=== PATIENT | female | born 1945 | race Caucasian/White ===

== ENCOUNTER → 2016-04-10 | Outpatient (REF) | payer MEDICARE | LOC: M SFHCCLAY 07:24 | PROVIDERS: ATTEND Nurse Practitioner Family | DX: E78.4 Other hyperlipidemia (principal); E55.9 Vitamin D deficiency, unspecified ==

== ENCOUNTER → 2016-10-16 | Outpatient (REF) | payer MEDICARE ==
[~2016-10-16] MED LIST: AMLO5TAB2 PO
[2016-10-16 12:09] LABS: MEAN CORPUSCULAR HEMOGLOBIN 29.3 pg (27.0-33.0); MEAN CORPUSCULAR HGB CONC 32.9 g/dl (32.0-36.5); MEAN CORPUSCULAR VOLUME 89.2 fl (80.0-96.0); RED CELL DISTRIBUTION WIDTH 12.5 % (11.5-14.5); WHITE BLOOD COUNT 5.2 K/mm3 (4.0-10.0)
[2016-10-16 12:28] LABS: ALBUMIN 3.9 GM/DL (3.2-5.2); ALBUMIN/GLOBULIN RATIO 1.26 (1.00-1.93); BILIRUBIN,TOTAL 0.7 MG/DL (0.2-1.0); CALCIUM LEVEL 9.2 MG/DL (8.8-10.2); CREATININE FOR GFR 1.03 MG/DL (0.55-1.02); GLOMERULAR FILTRATION RATE 56.4 (>39); POTASSIUM SERUM 4.1 MEQ/L (3.5-5.1)
== END ==
LOC: M SFHCCLAY 07:22
PROVIDERS: ATTEND Nurse Practitioner Family
DX: E78.4 Other hyperlipidemia (principal); I10 Essential (primary) hypertension; E55.9 Vitamin D deficiency, unspecified

== ENCOUNTER → 2016-11-10 | Outpatient (CLI) | payer MEDICARE ==
--- NOTE | 2016-11-10 12:47 | REP ---
PELVIS, ONE VIEW: HISTORY: Right hip pain. There is no acute fracture or dislocation. There is mild narrowing of the right hip joint space with associated osteophyte formation. A calcification is present lateral to the femoral head. This represents ligamentous or tendon calcification. There is minimal narrowing of the left hip joint space with associated osteophyte formation. IMPRESSION: Degenerative change as described above.
--- NOTE | 2016-11-10 12:49 | REP ---
SACRUM AND COCCYX, THREE VIEWS: HISTORY: Right hip pain. The examination is limited. There is no definite fracture or subluxation. The L4-5 and L5-S1 intervertebral discs are decreased in height consistent with disc degeneration. Degenerative change is present in the hip joints. IMPRESSION: Degenerative change as described above.
--- NOTE | 2016-11-10 12:51 | REP ---
RIGHT FEMUR, FOUR VIEWS: HISTORY: Right hip pain. There is no acute fracture or dislocation. There is mild narrowing of the hip joint space with associated osteophyte formation. Calcification is present lateral to the head of the femur. This represents ligamentous or tendon calcification. There is narrowing of the knee joint space. Chondrocalcinosis is present. IMPRESSION: Degenerative change as described above.
== END ==
LOC: M CLY 11:35
PROVIDERS: ATTEND Nurse Practitioner Family
DX: M16.11 Unilateral primary osteoarthritis, right hip (principal); M11.261 Other chondrocalcinosis, right knee; M51.36 Other intervertebral disc degeneration, lumbar region; M51.37 Other intervertebral disc degeneration, lumbosacral region
CPT/HCPCS: 72190; 72220; 73552; G0463

== ENCOUNTER 2017-02-02 08:30 | Inpatient (IN) | payer MEDICARE ==
[2017-01-19 09:58] VITALS: BP 180/98
--- NOTE | 2017-01-31 15:08 | HPE ---
DATE OF ADMISSION: 02/06/2017 ATTENDING PHYSICIAN: Dr. Nilesh Jovel CHIEF COMPLAINT: Right hip pain and stiffness. HISTORY: Patient is a 71-year-old female with progressively worsening right hip pain and stiffness. She failed to improve with conservative measures. She still has pain with weightbearing activities and activities of daily living. Patient has consented for an elective right total hip arthroplasty with Dr. Jovel. Medical optimization received and reviewed from Dr. Sams. CURRENT MEDICATIONS: - amlodipine 5 mg daily - calcium with vitamin D 600/200 units twice daily ALLERGIES: NICKEL, PENICILLIN TETRACYCLINE, ERYTHROMYCIN, DILANTIN, BENAZEPRIL, CODEINE. PAST MEDICAL HISTORY: 1. Hypertension. 2. Elevated cholesterol. 3. History of colon cancer. 4. Diverticulitis. 5. Raynaud syndrome. SURGICAL HISTORY: 1. Hysterectomy. 2. Breast biopsy. 3. Appendectomy. 4. Right oophorectomy. 5. Colonoscopy. 6. Low back surgery. SOCIAL HISTORY: Patient denies tobacco use, rarely uses alcohol. REVIEW OF SYSTEMS: Patient denies fevers, chills, nausea, vomiting, or diarrhea. She denies chest pain, shortness of breath, headaches, cough or abdominal pain. She continues to have right hip pain with weightbearing activities and activities of daily living. PHYSICAL EXAMINATION: VITAL SIGNS: Height 65.75 inches. Weight 120 pounds. Temperature 98.3. Heart rate 80. Respirations 11. Blood pressure 160/98. GENERAL: Patient is a well-nourished, well-developed female, in no apparent distress. HEART: Regular rate and rhythm. LUNGS: Clear to auscultation bilaterally. ABDOMEN: Soft. Nontender to palpation. Bowel sounds are present. NECK: Supple, without lymphadenopathy. MUSCULOSKELETAL: Right hip reveals no gross abnormalities. Skin is intact. She does have limited motion especially with internal rotation. Right lower extremity strength is normal. There was hip irritability elicited with range of motion testing. Her calf is soft, nontender to palpation with no palpable cords noted. Distally, she is neurovascularly intact. LABORATORY DATA: Chest x-ray: Negative posterior-anterior (PA) and lateral chest. EKG: Sinus rhythm with occasional ectopic premature complexes. Left atrial enlargement. Possible left ventricular hypertrophy. Nonspecific ST and T wave abnormality. Nasal and sinus culture: Normal lubna. Urinalysis: Positive for 1+ blood and 4 RBCs. Urine culture: Reveals no growth. Prothrombin time: 13.7. INR: 1.04. Complete blood count: WBC 7.4, RBC 4.94, hemoglobin 14.1, hematocrit 42.4, platelets 298. Erythrocyte sedimentation rate 8. Comprehensive metabolic profile: Fasting glucose elevated at 122. BUN 17, creatinine 0.86. GFR greater than 60. Sodium 141, potassium 4.0, chloride 104, carbon dioxide 30. Anion gap decreased at 7. Calcium 9.4. AST 23, ALT 15. Alkaline phosphatase 85. Total bilirubin 0.4. Total protein 7.2. Albumin 3.8. Albumin globulin ratio 1.12. ASSESSMENT AND PLAN: 1. Right hip osteoarthritis with x-rays notable for end-stage degenerative changes. Patient has consented for an elective right total hip arthroplasty with Dr. Jovel. 2. Hypertension with elevated reading during office visit. This should not delay surgery unless blood pressure is significantly elevated on day of. MTDD
[~2017-02-02] VITALS: Ht 167.6 cm; Wt 55.3 kg
[2017-02-06] VITALS (7 sets, daily range): BP systolic 135–170; BP diastolic 72–97
[2017-02-06] MEDS ORDERED: LR 1,000 ML IV ONE (07:45)
[2017-02-06] MEDS ORDERED: PREGABALIN 75 MG CAP(LYRICA) PO ONE (08:00)
[2017-02-06] MEDS ORDERED: PERCOCET 5MG/325MG TAB PO ONE (08:00)
[2017-02-06] MEDS ORDERED: CelecoXIB 400 MG CAP PO ONE (08:00)
[2017-02-06] MEDS ORDERED: CHEW500C2 PO (08:14)
[2017-02-06] MEDS ORDERED: ATIV1TAB10 PO (08:14)
[2017-02-06] MEDS ORDERED: TRANEXAMIC ACID 100 MG/ML 10ML VIAL As Ordered ONE (10:14)
[2017-02-06] MEDS ORDERED: EPINEPHrine INJ 1 MG/ML 1ML AMP As Ordered ONE (10:14)
[2017-02-06] MEDS ORDERED: BUPIVACAINE/EPIN 0.25% 30 ML VIAL As Ordered ONE (10:14)
[2017-02-06] MEDS ORDERED: ceFAZolin 1GM INJ (J0690) As Ordered ONE (10:19)
[2017-02-06] MEDS ORDERED: PROPOFOL 200 MG/20 ML VIAL As Ordered ONE (10:20)
[2017-02-06] MEDS ORDERED: MIDAZOLAM INJ 2 MG/2 ML VIAL (J2250) As Ordered ONE (10:20)
[2017-02-06] MEDS ORDERED: BUPIVACAINE HCL 0.5% 30 ML VIAL As Ordered ONE (12:13)
[2017-02-06] MEDS ORDERED: BUPIVACAINE LIPOSOME/PF 1.3% 20 ML VIAL (13.3MG/ML)(EXPAREL) As Ordered ONE (12:14)
[2017-02-06] MEDS ORDERED: ONDANSETRON 4MG/2ML VIAL (J2405) IV PRN (13:30)
[2017-02-06] MEDS ORDERED: HYDROmorphone HCL 1 MG/ML SYRINGE (J1170) IV PRN ×3 (13:30→13:45)
[2017-02-06] MEDS ORDERED: NORCO, ANEXSIA 5/325MG TABLET (HYDROcodone/ACETAMINOPHEN) PO PRN ×2 (13:30)
[2017-02-06] MEDS ORDERED: ACETAMINOPHEN TAB 650MG DOSE (2X325MG) PO PRN (13:30)
[2017-02-06] MEDS ORDERED: PERCOCET 5MG/325MG TAB PO PRN (13:30)
[2017-02-06] MEDS ORDERED: fentaNYL 100 MCG/2 ML INJECTION (J3010) IV PRN (13:30)
[2017-02-06] MEDS ORDERED: FLEET ENEMA PR PRN (13:30)
[2017-02-06] MEDS ORDERED: LR 1,000 ML IV SCH (13:30)
[2017-02-06] MEDS ORDERED: PROMETHAZINE INJ 25 MG/ML VIAL (J2550) IV PRN (13:45)
[2017-02-06] MEDS: D5W/LR 1,000 ML IV SCH ×2 (14:38→23:30)
[2017-02-06] MEDS ORDERED: SCOPOLAMINE 1.5 MG TRANSDERMAL TOP ONE (15:00)
--- NOTE | 2017-02-06 15:40 | REP ---
Clinical: Status post arthroplasty. Technique: AP and cross-table lateral views. Findings: The patient is status post right hip replacement with normal positioning and appearance to the femoral and acetabular components. Overlying postsurgical changes appreciated. Impression: Satisfactory right hip replacement radiographs. Signed by Anand Craig MD 02/06/2017 03:31 P
[2017-02-06] MEDS ORDERED: WARFARIN SOD 2.5 MG TAB PO ONE (17:00)
[2017-02-06] MEDS: CEFAZOLIN SOD 1 GM in APPROPRIATE DILUENT 1 EA IV SCH (18:16)
[2017-02-06] MEDS: PREGABALIN 50 MG CAP (LYRICA) PO SCH (20:03)
[2017-02-07] VITALS (8 sets, daily range): BP systolic 83–144; BP diastolic 46–78
[2017-02-07] MEDS: CEFAZOLIN SOD 1 GM in APPROPRIATE DILUENT 1 EA IV SCH (03:00)
[2017-02-07 06:45] LABS: MEAN CORPUSCULAR HEMOGLOBIN 28.8 pg (27.0-33.0); MEAN CORPUSCULAR HGB CONC 33.7 g/dl (32.0-36.5); MEAN CORPUSCULAR VOLUME 85.5 fl (80.0-96.0); PLATELET COUNT, AUTOMATED 280 10^3/uL (150-450); RED CELL DISTRIBUTION WIDTH 13.2 % (11.5-14.5); WHITE BLOOD COUNT 10.7 10^3/uL (4.0-10.0)
[2017-02-07 06:56] LABS: INR 1.22
[2017-02-07] MEDS ORDERED: HYDR-3713 PO (08:48)
[2017-02-07] MEDS ORDERED: COUM2.5T17 PO (08:48)
[2017-02-07] MEDS ORDERED: LYRI75CA PO (08:53)
[2017-02-07] MEDS: MIRALAX *UNIT DOSE* 17GM PACKET PO SCH (09:21)
[2017-02-07] MEDS: MOM 30ML SUSPENSION UDC PO SCH (09:21)
[2017-02-07] MEDS: SENOKOT S TAB PO SCH ×2 (09:22→20:03)
[2017-02-07] MEDS: PREGABALIN 50 MG CAP (LYRICA) PO SCH ×2 (09:22→20:02)
[2017-02-07] MEDS: CelecoXIB (CeleBREX) 100 MG CAP PO SCH (09:22)
[2017-02-07] MEDS: amLODIPine 5 MG TAB PO SCH (09:24)
--- NOTE | 2017-02-07 10:14 | IPNPDOC ---
Subjective Date Seen The patient was seen on 02/07/17. Subjective Chief Complaint/HPI The patient is a 71-year-old female admitted with a reason for visit of Arthritis Right Hip. Events since last encounter s/p right hip arthroplasty with Dr. Jovel. rio c/o. Constitutional: Denies: Chills, Fever, Night Sweats Pulmonary: Denies: Dyspnea, Cough Cardiovascular: Denies: Chest Pain, Palpitations, Orthopnea, Paroxysmal Noc. Dyspnea, Lt Headedness Objective Physical Examination General Exam: Positive: Alert, No Acute Distress Eye Exam: Positive: PERRLA, Conjunctiva & lids normal, EOMI, Negative: Sclera icteric Neck Exam: Positive: Supple, Negative: JVD, thyromegaly Chest Exam: Positive: Clear to auscultation, Normal air movement Heart Exam: Positive: Rate Normal, Regular Rhythm, Normal S1, Normal S2, Negative: Murmurs, Rubs Extremity Exam: Positive: Normal pulses, Negative: Clubbing, Cyanosis, Edema Assessment /Plan Problems (1) HTN (hypertension) Status: Chronic Response to Treatment: Stable Problem Text: BP stable on home medications. No further medical intervention necessary. f/u in office after DC from hospital. (2) Osteoarthritis of right hip Problem Text: warfarin dosing per Ortho. Plan/VTE VTE Prophylaxis Ordered?: Yes (warfarin) Plan Family Medicine Attending Note: I saw and examined Ms. Flores this afternoon ; she had no complaints. BP is at goal on home amlodipine; she had some hypotension this morning but repeat BP checks since then have been normal. Thank you for involving us in Ms. Flores's care; at this time we will sign off but will be happy to assist further should a need arise. (KES) VS, I&O, 24H, Fishbone Vital Signs/I&O Vital Signs Date Time Temp Pulse Resp B/P (MAP) Pulse Ox O2 Delivery O2 Flow Rate FiO2 02/07/17 10:01 Room Air 02/07/17 10:00 99.3 97 16 144/78 (100) 100 02/07/17 02:00 2.0 I&O- Last 24 Hours up to 6 AM 02/08/17 06:00 Intake Total 1930 ml Output Total 450 ml Balance 1480 ml Laboratory Data 24H LABS Laboratory Tests 2 02/07/17 06:22: Nucleated Red Blood Cells % (auto) 0.0, Prothrombin Time 15.6H, Prothromb Time International Ratio 1.22 CBC/BMP Laboratory Tests 02/07/17 06:22 Red Blood Count 4.20, Mean Corpuscular Volume 85.5, Mean Corpuscular Hemoglobin 28.8, Mean Corpuscular Hemoglobin Concent 33.7, Red Cell Distribution Width 13.2 Coretta Kaminski Feb 07, 2017 10:14 MECHE MARTIN MD Feb 07, 2017 16:44
--- NOTE | 2017-02-07 10:57 | RO ---
DATE OF PROCEDURE: 02/06/2017 PREOPERATIVE DIAGNOSIS: Right hip osteoarthritis. POSTOPERATIVE DIAGNOSIS: Right hip osteoarthritis. PROCEDURE PERFORMED: Right total hip replacement. SURGEON: Nilesh Jovel MD MILLWRIGHT APPRENTICE: RAJWINDER Tang ANESTHESIA: Spinal with block. ESTIMATED BLOOD LOSS: Less than 100 mL, replaced with crystalloid. COMPLICATIONS: No complications. COMPONENTS USED: Include DePuy Clayton system, size 4 femoral stem, size +1.5 neck length, size 52 mm acetabular shell, AltrX 36 mm acetabular polyethylene liner, and a 36 mm +1.5 femoral head, apex hole eliminator utilized. The femoral head is a ceramic femoral head. Ceramic utilized in this case because of the patient's reported nickel allergy. INDICATIONS: Progressive discomfort right hip in this 71-year-old woman who has elected for operative intervention at this point. Consent reviewed in detail including a alexandro discussion of the pathology involved, the procedure proposed, alternatives including doing nothing, risks including but not limited to pain, failure, infection, need for more surgery, dislocation, blood loss, blood clots, medical issues, limp and other issues. The patient agrees to proceed. OPERATIVE COURSE: Identified in the holding area. This site and side verified, brought to the operating room. Once spinal was accomplished, she was positioned on the Alvaro frame for exposure of the right hip for hip replacement. Axillary roll was utilized. Time out was accomplished once she was sterilely prepped and draped in usual fashion and positioned. Next, once I foundry worker apprentice were comfortable to the patient's positioning, we began the surgical procedure. Mr. Pimentel stood on the anterior, I on the posterior. We utilized the sterile arthroplasty suits. Next, the incision was based on bony landmarks, infiltrated with 0.25% Marcaine with epinephrine and made with the 10 blade knife obliquely over the greater trochanter of the right hip. The dissection continued through subcuticular tissues to the lateral fascia. The lateral fascia was split over the greater trochanter of the right hip. This was a modified Hardinge approach. The lateral fascia split was continued proximally and distally using a Pisano scissor. I identified in the abductor mechanism. A split was created in the abductor at the 2 o'clock anterior position. Mr. Pimentel and the certified technician specialist assisted with monitoring retractors. I utilized Bovie cautery to open the minimus and hip capsule exposing the arthritic femoral head, reflected head of the vastus was also released from the acetabulum as I split the labrum. The abductor mechanism was tagged and I released it leaving a cuff of tissue for later repair on the greater trochanter. The dissection continued inferiorly splitting the vastus lateralis and the capsule tissues so that I could palpate the lesser trochanter. Next, a bone hook was utilized to dislocate the hip while Mr. Pimentel manipulated the extremity into the sterile bag. Next, once the positioning was accomplished, we then utilized the canal opening reamer followed by the canal finding reamer followed by the canal lateralizing reamer. I then utilized the template and utilized the oscillating saw to the make femoral cut one fingerbreadth from the lesser trochanter. The femoral head was removed. Attention was then turned to the acetabulum with anterior and posterior retractors. Mr. Pimentel secured the retractors and then I removed the acetabular labrum and the transverse acetabular ligament and capsular tissue inferiorly using the hot knife. The floor of the acetabulum and the condyloid fossa was cleared of soft tissue using the hot knife. Next, once this was accomplished, I then utilized the hemispherical reamer to ream the acetabulum, beginning with a size 45 through 49, reamed to the floor of the acetabulum using these reamers. I then expanded hemispherically through a size 51 reamer which seemed to fit her acetabulum quite well. I then trialed with a size 52 acetabular trial, which fit securely. Next, pulse lavage irrigation was accomplished. I then utilized the targeting device to assist in placement of the non trial acetabulum, which was tamped into place using a mallet. I verified it was in the floor of the acetabulum, placed the apex hole eliminator, placed a 36 mm liner, which was tamped into place and verified to be secure with a Waldorf. Next, irrigation was accomplished and attention turned to the femoral component. The leg was a positioned appropriately. Rasps were utilized from a size 2 rasp through a size 4 rasp. I did utilize the small calcar planer. I did broach quite heavily with the 4 rasp as we had templated a size 5; however, the 4 rasp seemed to be the one that fit appropriately and did not seem to settle beyond the femoral neck cut. Next, we then trialed with a +1.5 neck length on the 4 rasp, which seemed to fit appropriately with a 36 mm head. The hip was placed through a range of motion, internal rotation as well as external rotation and found to be stable. The abductor muscle tension was found to be adequate and I was able to reduce the abductor mechanism back to the cuff of tissue on the greater trochanter anatomically. The hip was then dislocated, irrigation was accomplished. I obtained the non trial femoral component, which was implanted, tamping it into place. Standard offset and we then installed the non trial 36 mm ceramic femoral head and tamped it into place. Ceramic head again was utilized because of the patient's concern with her nickel allergy. The hip was reduced. Irrigation was accomplished. We also irrigated with TXA approximately 50 mL was instilled around the wound and allowed to stand for at least 1 minute. Next, once this was evacuated I utilized interrupted Vicryl stitch to close the capsule and minimus tissues, reapproximating them, followed by reapproximation of the abductor mechanism to the cuff of tissue on the greater trochanter and also [id number], reapproximation of the vastus lateralis, followed by the lateral fascia which was interrupted stitch in a running STRATAFIX stitch. Next, the deep dermis was approximated with interrupted stitch and the Prineo dressing was applied to the skin wound. Next, once this was accomplished, the patient was moved to the prone position, pillow between the knees, moved to the recovery room in good condition. For further details, please refer to medical record. Mr. Pimentel was present and participated in the capacity of content assistant.
[2017-02-07] MEDS ORDERED: WARFARIN SOD 5 MG TAB PO ONE (17:00)
[2017-02-08 06:00] VITALS: BP 137/66
[2017-02-08 06:59] LABS: INR 1.35
[2017-02-08] MEDS: MOM 30ML SUSPENSION UDC PO SCH (09:00)
[2017-02-08] MEDS: MIRALAX *UNIT DOSE* 17GM PACKET PO SCH (09:00)
[2017-02-08 09:02] VITALS: BP 137/66
[2017-02-08] MEDS: SENOKOT S TAB PO SCH (09:02)
[2017-02-08] MEDS: amLODIPine 5 MG TAB PO SCH (09:02)
[2017-02-08] MEDS: PREGABALIN 50 MG CAP (LYRICA) PO SCH ×2 (09:02→12:32)
[2017-02-08] MEDS: CelecoXIB (CeleBREX) 100 MG CAP PO SCH (09:02)
[2017-02-08] MEDS ORDERED: WARFARIN SOD 5 MG TAB PO ONE (17:00)
--- NOTE | 2017-02-12 10:31 | DSES ---
DATE OF ADMISSION: 02/06/2017 DATE OF DISCHARGE: 02/08/2017 ATTENDING PHYSICIAN: Dr. Nilesh Jovel ADMITTING DIAGNOSIS: Right hip osteoarthritis. OTHER DIAGNOSES: 1. Hypertension. 2. Elevated cholesterol. 3. Diverticulitis. 4. Raynaud's syndrome. DISCHARGE DIAGNOSIS: Right hip osteoarthritis status post right total hip arthroplasty. HISTORY: The patient is a 71-year-old female with progressively worsening right hip pain and stiffness. She failed to improve with conservative measures so she consented for an elective right total hip arthroplasty with Dr. Jovel. OPERATION PERFORMED: Right total hip arthroplasty. HOSPITAL COURSE: The patient underwent a right total hip arthroplasty under spinal anesthesia which was uneventful. Her hospital course was without complication and she was up with physical therapy per their protocol weight bearing as tolerated on the right lower extremity. She was discharged on oral pain medications and will resume her preoperative medications and diet. She will use her thromboembolic deterrent stockings and take her Coumadin for 30 days postoperatively to prevent deep venous thrombosis. She will follow up in our office in 12-14 days for a wound check. She is encouraged to contact our office sooner if there is any increased pain, redness, drainage, numbness or tingling in the extremity, fever greater than 101 degrees or any other concerns. Please see medical record for additional details. GONZÁLEZ
== END 2017-02-08 12:35 | disposition home health service (06) | DRG 470 ==
LOC: M OR 02-06 07:34 → M MS5PR 02-06 14:05
PROVIDERS: ADMIT Orthopaedic Surgery; ATTEND Orthopaedic Surgery
PROC: 0SR904Z Replacement of Right Hip Joint with Ceramic on Polyethylene Synthetic Substitute, Open Approach (ICD-10-PCS; principal; 2017-02-06 09:45)
DX: M16.11 Unilateral primary osteoarthritis, right hip (principal); K57.32 Diverticulitis of large intestine without perforation or abscess without bleeding; I10 Essential (primary) hypertension; E78.00 Pure hypercholesterolemia, unspecified; Z85.038 Personal history of other malignant neoplasm of large intestine; I73.00 Raynaud's syndrome without gangrene; Z79.899 Other long term (current) drug therapy; Z88.1 Allergy status to other antibiotic agents; Z88.0 Allergy status to penicillin; Z88.5 Allergy status to narcotic agent; Z88.8 Allergy status to other drugs, medicaments and biological substances

== ENCOUNTER → 2017-02-15 | Outpatient (REF) | payer MEDICARE ==
[~2017-02-15] MED LIST changes: +ATIV1TAB10 PO; +CHEW500C2 PO; +COUM2.5T17 PO; +HYDR-3713 PO; +LYRI75CA PO
[2017-02-15 15:48] LABS: INR 1.66
== END ==
LOC: M SHH 15:20
PROVIDERS: ATTEND Nurse Practitioner Family
DX: Z79.01 Long term (current) use of anticoagulants (principal)

== ENCOUNTER → 2017-02-19 | Outpatient (REF) | payer MEDICARE ==
[2017-02-19 15:49] LABS: INR 2.08
== END ==
LOC: M SHH 15:13
PROVIDERS: ATTEND Nurse Practitioner Family
DX: Z51.81 Encounter for therapeutic drug level monitoring (principal); Z79.01 Long term (current) use of anticoagulants

== ENCOUNTER → 2017-02-22 | Outpatient (REF) | payer MEDICARE ==
[2017-02-22 14:02] LABS: INR 1.75
== END ==
LOC: M LAB REF 13:26 → M SHH 13:26
PROVIDERS: ATTEND Nurse Practitioner Family
DX: Z51.81 Encounter for therapeutic drug level monitoring (principal); Z79.01 Long term (current) use of anticoagulants

== ENCOUNTER → 2017-02-26 | Outpatient (REF) | payer MEDICARE ==
[2017-02-26 18:46] LABS: INR 1.74
== END ==
LOC: M SHH 17:38
PROVIDERS: ATTEND Nurse Practitioner Family
DX: Z79.01 Long term (current) use of anticoagulants (principal)

== ENCOUNTER → 2017-03-01 | Outpatient (REF) | payer MEDICARE ==
[2017-03-01 14:12] LABS: INR 1.76
== END ==
LOC: M SHH 13:45
PROVIDERS: ATTEND Nurse Practitioner Family
DX: Z51.81 Encounter for therapeutic drug level monitoring (principal); Z79.01 Long term (current) use of anticoagulants

== ENCOUNTER → 2017-03-05 | Outpatient (REF) | payer MEDICARE ==
[2017-03-05 15:57] LABS: INR 1.66
== END ==
LOC: M SHH 15:30
PROVIDERS: ATTEND Nurse Practitioner Family
DX: Z79.01 Long term (current) use of anticoagulants (principal)

== ENCOUNTER → 2017-05-22 | Outpatient (REF) | payer MEDICARE ==
[2017-05-22 11:57] LABS: CHOLESTEROL LEVEL 217 MG/DL (<200); CHOLESTEROL RISK RATIO 2.465 (<5); HDL CHOLESTEROL 88 MG/DL (>40); NON-HDL-C 129 MG/DL; TRIGLYCERIDES LEVEL 75 MG/DL (<150)
[2017-05-22 12:02] LABS: TOTAL 25(OH) VITAMIN D 48.6 NG/ML (30.0-100.0)
== END ==
LOC: M SFHCCLAY 07:30
DX: E78.4 Other hyperlipidemia (principal); E55.9 Vitamin D deficiency, unspecified
CPT/HCPCS: 82306

== ENCOUNTER → 2017-12-05 | Outpatient (REF) | payer MEDICARE ==
[2017-12-05 16:51] LABS: RHEUMATOID FACTOR QUANT < 10.0 IU/ML (<15.0)
[2017-12-05 17:08] LABS: ERYTHROCYTE SEDIMENTATION RATE 18 mm/hr (0-30)
[2017-12-05 18:18] LABS: CONTROL LINE MONO INT CTR LINE PRESENT; MONO SCRN NEGATIVE (NEGATIVE)
[2017-12-08 00:09] LABS: ANTINUCLEAR ANTIBODIES DIRECT Negative (Negative); Lyme Disease IgG/IgM Antibodie <0.91 ISR (0.00-0.90); Lyme Disease IgM Ab Quantitati <0.80 index (0.00-0.79)
== END ==
LOC: M SFHCCLAY 11:11
DX: M25.50 Pain in unspecified joint (principal)
CPT/HCPCS: 85652

== ENCOUNTER → 2018-04-01 | Outpatient (CLI) | payer MEDICARE ==
[~2018-04-01] MED LIST changes: -AMLO5TAB2 PO; +AMLO5TAB6 PO
[2018-04-01 10:37] LABS: C REACTIVE PROTEIN QUANTITATIV < 0.30 MG/DL (0.00-0.30)
[2018-04-01 10:39] LABS: VITAMIN B12 LEVEL 833 PG/ML (247-911)
--- NOTE | 2018-04-01 11:03 | REP ---
RIGHT WRIST, FOUR VIEWS: HISTORY: Pain. There is no acute fracture or dislocation. Calcification is present distal to the ulna. This represents ligamentous or tendon calcification. IMPRESSION: There is no acute fracture or dislocation. Electronically Signed by Carlton Burdick MD 04/01/2018 11:27 A
--- NOTE | 2018-04-01 11:05 | REP ---
CERVICAL SPINE, SEVEN VIEWS: HISTORY: Neck pain. There is no acute fracture or subluxation. The C4-5 through C6-7 intervertebral discs are decreased in height consistent with disc degeneration. Osteophytes are present on C5-7. There is narrowing of the C4 and 5 neural foramina secondary to uncinate process hypertrophy. IMPRESSION: Degenerative change as described above. Electronically Signed by Carlton Burdick MD 04/01/2018 11:28 A
--- NOTE | 2018-04-01 11:09 | REP ---
BILATERAL SHOULDER, SIX VIEWS: HISTORY: Shoulder pain. RIGHT SHOULDER: There is no acute fracture or dislocation. There is mild narrowing of the glenohumeral joint space and moderate narrowing of the acromioclavicular joint space. Osteophytes are present at the acromioclavicular joint space. IMPRESSION: Degenerative change as described above. LEFT SHOULDER: There is no acute fracture or dislocation. There is mild narrowing of the glenohumeral joint space and moderate narrowing of the acromioclavicular joint space. Osteophytes are present at the acromioclavicular joint space. Calcification is present superior to the acromioclavicular joint space and lateral to the head of the humerus. This represents ligamentous or tendon calcification. IMPRESSION: Degenerative change as described above. Electronically Signed by Carlton Burdick MD 04/01/2018 11:28 A
== END ==
LOC: M LAB 09:29
PROVIDERS: ATTEND Internal Medicine Rheumatology
DX: M19.011 Primary osteoarthritis, right shoulder (principal); M25.711 Osteophyte, right shoulder; M19.012 Primary osteoarthritis, left shoulder; M75.32 Calcific tendinitis of left shoulder; M25.712 Osteophyte, left shoulder; M25.78 Osteophyte, vertebrae; M65.821 Other synovitis and tenosynovitis, right upper arm; M25.519 Pain in unspecified shoulder; M25.539 Pain in unspecified wrist

== ENCOUNTER → 2018-06-17 | Outpatient (REF) | payer MEDICARE ==
[2018-06-17 11:42] LABS: CHOLESTEROL RISK RATIO 2.266 (<5)
== END ==
LOC: M SFHCCLAY 06:57
PROVIDERS: ATTEND Nurse Practitioner Family
DX: E78.49 Other hyperlipidemia (principal)

== ENCOUNTER → 2018-12-16 | Outpatient (REF) | payer MEDICARE ==
[2018-12-16 12:12] LABS: HEMATOCRIT 46.8 % (36.0-47.0); HEMOGLOBIN 15.1 g/dl (12.0-15.5); MEAN CORPUSCULAR HEMOGLOBIN 28.5 pg (27.0-33.0); MEAN CORPUSCULAR HGB CONC 32.3 g/dl (32.0-36.5); MEAN CORPUSCULAR VOLUME 88.3 fl (80.0-96.0); PLATELET COUNT, AUTOMATED 246 10^3/uL (150-450); WHITE BLOOD COUNT 8.3 10^3/uL (4.0-10.0)
[2018-12-16 12:39] LABS: ALT/SGPT 17 U/L (12-78); BILIRUBIN,TOTAL 0.6 MG/DL (0.2-1.0); BLOOD UREA NITROGEN 14 MG/DL (7-18); CALCIUM LEVEL 9.7 MG/DL (8.8-10.2); CARBON DIOXIDE LEVEL 33 MEQ/L (21-32); CHLORIDE LEVEL 103 MEQ/L (98-107); CHOLESTEROL LEVEL 239 MG/DL (<200); CHOLESTEROL RISK RATIO 2.685 (<5); CREATININE FOR GFR 0.92 MG/DL (0.55-1.30); GLOMERULAR FILTRATION RATE > 60.0 (>39); GLUCOSE, FASTING 100 MG/DL (70-100); HDL CHOLESTEROL 89 MG/DL (>40); LDL CHOLESTEROL 134 MG/DL (<100); NON-HDL-C 150 MG/DL; POTASSIUM SERUM 4.1 MEQ/L (3.5-5.1); SODIUM LEVEL 141 MEQ/L (136-145); TOTAL 25(OH) VITAMIN D 37.5 NG/ML (30.0-100.0); TOTAL PROTEIN 7.4 GM/DL (6.4-8.2); TRIGLYCERIDES LEVEL 81 MG/DL (<150)
== END ==
LOC: M SFHCCLAY 07:15
PROVIDERS: ATTEND Nurse Practitioner Family
DX: I10 Essential (primary) hypertension (principal); E78.49 Other hyperlipidemia; E55.9 Vitamin D deficiency, unspecified; Z79.899 Other long term (current) drug therapy

== ENCOUNTER 2019-07-23 21:37 | Inpatient (IN) | payer MEDICARE ==
[~2019-07-23] VITALS: Ht 167.6 cm; Wt 60.5 kg
[~2019-07-23 21:37] MED LIST changes: +APIXABAN 2.5 MG TAB (ELIQUIS) PO SCH
--- NOTE | 2019-07-23 22:30 | REPVR ---
PROCEDURE INFORMATION: Exam: CT Head Without Contrast Exam date and time: 07/23/2019 10:19 PM Age: 73 years old Clinical indication: Pain; Headache; Additional info: FAIR TECHNIQUE: Imaging protocol: Computed tomography of the head without contrast. Radiation optimization: All CT scans at this facility use at least one of these dose optimization techniques: automated exposure control; mA and/or kV adjustment per patient size (includes targeted exams where dose is matched to clinical indication); or iterative reconstruction. COMPARISON: No relevant prior studies available. FINDINGS: Brain: Diffuse mild cerebral age related volume loss. Mild patchy low attenuation in the white matter compatible with mild chronic small vessel ischemic disease. No midline shift, mass, fluid collection, or evidence of hemorrhage. Small right frontal cortical encephalomalacia. 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 Ventricles: Ventricular enlargement proportional to volume loss. Bones/joints: Unremarkable. No acute fracture. Sinuses: Visualized sinuses are unremarkable. No fluid levels. Mastoid air cells: Visualized mastoid air cells are well aerated. Soft tissues: Unremarkable. IMPRESSION: Mild involutional changes, no acute intracranial abnormality. Electronically signed by: Velasquez Avendano On 07/23/2019 22:29:47 PM
[2019-07-23 22:53] LABS: BASO # 0.1 10^3/uL (0.0-0.2); EOS # 1.4 10^3/uL (0.0-0.5); HEMOGLOBIN 14.9 g/dl (12.0-15.5); LYMPH # 6.3 10^3/uL (1.5-5.0); LYMPH % 45.8 % (24.0-44.0); MEAN CORPUSCULAR HEMOGLOBIN 28.3 pg (27.0-33.0); MEAN CORPUSCULAR HGB CONC 33.9 g/dl (32.0-36.5); MEAN CORPUSCULAR VOLUME 83.7 fl (80.0-96.0); MONO # 0.6 10^3/uL (0.0-0.8); MONO % 4.6 % (0.0-5.0); NEUTROPHILS # 5.3 10^3/uL (1.5-8.5); NEUTROPHILS % 38.3 % (36.0-66.0); PLATELET COUNT, AUTOMATED 326 10^3/uL (150-450); RED BLOOD COUNT 5.26 10^6/uL (4.00-5.40)
[2019-07-23 22:54] LABS: WHITE BLOOD COUNT 13.8 10^3/uL (4.0-10.0)
[2019-07-23 23:26] LABS: APPEARANCE, URINE CLEAR (CLEAR); BACTERIA, URINE AUTO NEGATIVE (NEGATIVE); BILIRUBIN, URINE AUTO NEGATIVE (NEGATIVE); BLOOD, URINE BLOOD 1+ (NEGATIVE); COLOR, URINE STRAW (YELLOW); GLUCOSE, URINE (UA) AUTO 1+ mg/dL (NEGATIVE); KETONE, URINE AUTO NEGATIVE (NEGATIVE); LEUKOCYTE ESTERASE, URINE AUTO TRACE (NEGATIVE); NITRITE, URINE AUTO NEGATIVE (NEGATIVE); PROTEIN, URINE AUTO NEGATIVE (NEGATIVE); RBC, URINE AUTO 1 /HPF (0-3); SPECIFIC GRAVITY URINE AUTO 1.006 (1.002-1.035); SQUAMOUS EPITHELIAL CELL UR AU 0 /HPF (0-6); UROBILINOGEN, URINE AUTO 0.2 mg/dL (0.0-2.0); WBC, URINE AUTO 2 /HPF (0-3)
[2019-07-23] MEDS ORDERED: ASPIRIN 325 MG TAB PO ONE (23:30)
[2019-07-23 23:40] LABS: ALT/SGPT 19 U/L (12-78); BLOOD UREA NITROGEN 19 MG/DL (7-18); CALCIUM LEVEL 9.9 MG/DL (8.8-10.2); CARBON DIOXIDE LEVEL 25 MEQ/L (21-32); CHLORIDE LEVEL 105 MEQ/L (98-107); CREATININE FOR GFR 1.02 MG/DL (0.55-1.30); GLOMERULAR FILTRATION RATE 56.6 (>39); GLUCOSE, FASTING 142 MG/DL (70-100); POTASSIUM SERUM 3.4 MEQ/L (3.5-5.1); SODIUM LEVEL 143 MEQ/L (136-145)
[2019-07-23 23:41] LABS: ALBUMIN 3.9 GM/DL (3.2-5.2); BILIRUBIN,DIRECT 0.1 MG/DL (0.0-0.2); BILIRUBIN,TOTAL 0.3 MG/DL (0.2-1.0); CK-MB VALUE MASS 1.3 NG/ML (<3.6); CPK CREATINE PHOSPHOKINASE 59 U/L (26-192); ETHYL ALCOHOL (ETHANOL) < 0.003 % (0.000-0.010); FREE THYROXINE INDEX 3.5 % (1.3-4.8); T UPTAKE 34 % (30-39); THYROXINE (T4) 10.2 UG/DL (4.5-12.0); TOTAL PROTEIN 7.8 GM/DL (6.4-8.2); TROPONIN I 0.17 NG/ML (< 0.10)
[2019-07-23 23:51] LABS: MAGNESIUM LEVEL 2.2 MG/DL (1.8-2.4)
[2019-07-24] VITALS (7 sets, daily range): BP systolic 112–180; BP diastolic 89–112
[2019-07-24] MEDS ORDERED: ONDANSETRON 4MG/2ML VIAL IV PRN (01:15)
[2019-07-24] MEDS ORDERED: METOPROLOL 5 MG/5 ML VIAL IV PRN ×2 (01:30→06:25)
--- NOTE | 2019-07-24 01:50 | HPEPDOC ---
[facility] Medical History & Physical Date of Admission July 24, 2019 Date of Service: July 24, 2019 Attending Physician: JOHN BERMUDEZ MD History and Physical CHIEF COMPLAINT: Altered mental status HISTORY OF PRESENT ILLNESS: Cheri Gilmore is a pleasant 73-year-old female with history of hypertension, hyperlipidemia, previous CVA (old right thalamic infarct), and polymyalgia rheumatica, who presented to the ED on the evening of 07/23/19 with the chief complaint of altered mental status. The patient herself is unable to recall and articulate why she is in the hospital, nor the events preceding her a rrival. According to the ED, patient was speaking with a friend over the phone earlier in the day and seemed confused. The friend then visited the patient in person and subsequently drove her to the ED. In the ED, patient was found to have new onset atrial fibrillation with rapid ventricular response (rates about 105-140 bpm), along with WBC 13.8, troponin 0.17, TSH 6.6, alkaline phosphatase 126, serum glucose 142, and potassium 3.4. UA was relatively unremarkable, CT head without contrast showed no acute intracranial abnormality, and ethyl alcohol was not detected. Her NIH Stroke Scale score was 1. She was given one, 325mg ASA dose after Head CT. Patient endorsed "cloudy thinking," but denied any loss of consciousness, headache, vision changes, hearing changes, numbness, paresthesias, chest pain, chest pressure, or palpitations. She did have one episode of nonbloody emesis in the ED, but no longer feels nauseous. She also denied any abdominal pain, diarrhea, melena, or hematochezia. She's had no recent medication changes, extensive travel, or known exposure to sick contacts. She is unable to recall the name of her PCP but does know they practice in [place], [place]. She verbalizes that her CODE STATUS is DNR/DNI. Patient was subsequently admitted to the hospital service for the chief reasons of altered mental status, atrial fibrillation, and positive SIRS criteria (elevated hr and wbc). PAST MEDICAL HISTORY: Hypertension Hyperlipidemia Previous CVA (evidence on imaging of right thalamic infarct) Polymyalgia rheumatica History of diverticulitis Raynaud's syndrome PAST SURGICAL HISTORY: Hysterectomy, 1971 Right oophorectomy, appendectomy, cyst removal 1980 Surgery for herniated disc (L5), 1992 Colonoscopy 2011 Bilateral cataract surgery, 2010 Right total hip arthroplasty, 2017 SOCIAL HISTORY: . Lives alone. Has 1 daughter and 1 son. Retired, formerly worked as a coating line worker. Denies current or former tobacco use. Did used to drink alcohol socially but no longer does. Denies any current or former illicit drug use. FAMILY HISTORY: Father: at 89 years old; heart disease Mother: at 95 years old; hypertension Siblings: One brother, healthy Children: Son diagnosed with unspecified heart disease ALLERGIES: Please see extensive list below. REVIEW OF SYSTEMS: CONSTITUTIONAL: Denies recent illness, fever, chills, night sweats, unintenti onal weight change HEENT: Denies vision changes, hearing changes, dysphagia, odynophagia CARDIOVASCULAR: Denies chest pain, chest pressure, palpitations, or lower extremity edema RESPIRATORY: Denies shortness of breath, pleuritic chest pain, or cough GASTROINTESTINAL: Endorses 1 episode of nonbloody emesis in the ED, but denies current nausea, abdominal pain, diarrhea, blood in stool. GENITOURINARY:. Denies dysuria or hematuria. MUSCULOSKELETAL: Denies specific myalgias or arthralgias NEUROLOGICAL: Endorses "cloudy thinking" and inability to recall events. Sleep presentation; denies numbness or paresthesias HOME MEDICATIONS: Please see below. PHYSICAL EXAMINATION: VITAL SIGNS: Temperature 97.1, pulse 114, respiratory rate 20, blood pressure 145/74, pulse oximetry, 98 % on room air. GENERAL APPEARANCE: Pleasant female who appears stated age. Lying comfortably in bed. NAD. Alert and oriented to person and place, but not time nor situation. HEENT: Normocephalic, atraumatic. Wearing eyeglasses. PERRLA. Noninjected, anicteric sclera. No pharyngeal erythema or exudate. No lymphadenopathy appreciated. CARDIOVASCULAR: Tachycardic rate. Irregular rhythm. S1, S2 auscultated with no appreciated murmurs, rubs or gallops. No carotid bruits appreciated. LUNGS: Clear to auscultation bilaterally with no appreciated crackles, rhonchi, or wheezing. Symmetric chest expansion with adequate tidal volume and no excessive muscle use. Speaking full sentences. Breathing room air. ABDOMEN: Soft, nondistended and nontender. Normoactive bowel sounds present. No hepatosplenomegaly appreciated. MUSCULOSKELETAL:. 5 out of 5 muscle strength testing of upper extremities and lower extremities bilaterally. EXTREMITIES: 2+ radial and dorsalis pedis pulses bilaterally. Lower extremities are free of edema. NEUROLOGICAL: Awake, alert and oriented to person and place only. Not oriented to time nor situation. Poor short-term word recall. Non-dysarthric speech. Cranial nerves III through XII are grossly intact. Appropriate finger to nose test. No pronator drift, dysdiadochokinesis, or asterixis. Sensation to light touch intact UE & LE b/l. PSYCHIATRIC: Mood and affect appear appropriate. LABORATORY DATA: Please see below. IMAGING: CT head without contrast, 07/23/19: Mild involutional changes, no acute intracranial abnormality. MICROBIOLOGY: Please see below. ASSESSMENT & PLAN: This is a 73-year-old female with history of hypertension, hyperlipide hany, polymyalgia rheumatica, and previous CVA who was admitted for altered mental status and new-onset atrial fibrillation. #Altered mental status -primary deficiency is short term memory impairment -DDx includes transient global amnesia/anterograde amnesia vs vitamin def (B1, B12) vs thyroid disorder vs encephalopathy (viral, AI) -CT head w/o contrast showed no acute intracranial pathology; old right anterior medial thalamic lacunar infarct was visualized -overall NIHSS score in ED = 1 -ammonia level wnl (13); drug screen pending; vit B12 and B1 ordered - - should this w/u be unremarkable, day team may consider MR -q2h neuro checks -UA unremarkable; sGlu 142/POC 153 #New onset atrial fibrillation with rapid ventricular response -Initial EKG in ED showed A. fib with RVR, PVCs, LVH criteria -IV metoprolol tartrate q5m prn HR > 110 bpm, for rate control -Echocardiogram ordered -sc Lovenox started; was not previously on AC - - can consider switch to NOAC if rheumatic mitral valve pathology ruled out -on telemetry -[id number] Score for stroke risk in a-fib pt = 5 points (7.2% stroke risk per year) -Wells' Score for PE = 1.5 points (low risk of PE); therefore, CTA and D-dimer not ordered to r/o PE -weight-based lovenox initiated pending echo to #Positive SIRS criteria -WBC 13.8, HR > 90 bpm -WBC 9.9 on repeat 6h later -LA 1.5, SBPs have remained > 90 -UA unremarkable; UCx pending -BCx pending -NEWS2 Score (degree of illness needing critical intervention) = 1, low risk #Elevated troponin -Initial Trop I 0.17 -6 hour repeat 0.16 #Elevated TSH -TSH 6.6 with fT4 and T3 uptake wnl -potential sub-clinical hypothyroidism with mildly elevated TSH; recommend PCP f/u for thyroid function tests #Hypokalemia, mild -sK 3.4, Mg 2.2 -PO KCl supplemented w/ am bmp to follow -on telemetry #Hypertension -Home amlodipine continued -IV metoprolol tartrate prn for rate control #History of hyperlipidemia -not on any home medications -10mg atorvastatin qhs initiated #DVT prophylaxis: Lovenox sc Disposition: Admit to pcu on tele for continued observation and monitoring. Vital Signs Vital Signs Date Time Temp Pulse Resp B/P (MAP) Pulse Ox O2 Delivery O2 Flow Rate FiO2 07/24/19 01:20 97.9 118 18 112/ (37) 97 Room Air Laboratory Data Labs 24H Laboratory Tests 2 07/23/19 22:01: Bedside Glucose (Misc Panel) 153H 07/23/19 22:06: Immature Granulocyte % (Auto) 0.3, Neutrophils (%) (Auto) 38.3, Lymphocytes (%) (Auto) 45.8H, Monocytes (%) (Auto) 4.6, Eosinophils (%) (Auto) 10.0H, Basophils (%) (Auto) 1.0, Neutrophils # (Auto) 5.3, Lymphocytes # (Auto) 6.3H, Monocytes # (Auto) 0.6, Eosinophils # (Auto) 1.4H, Basophils # (Auto) 0.1, Nucleated Red Blood Cells % (auto) 0.0, Anion Gap 13, Glomerular Filtration Rate 56.6, Calcium Level 9.9, Magnesium Level 2.2, Total Bilirubin 0.3, Direct Bilirubin 0.1, Aspartate Amino Transf (AST/SGOT) 30, Alanine Aminotransferase (ALT/SGPT) 19, Alkaline Phosphatase 126H, Total Creatine Kinase 59, Creatine Kinase MB 1.3, Creatine Kinase MB Relative Index 2.20, Troponin I 0.17H, Total Protein 7.8, Albumin 3.9, Albumin/Globulin Ratio 1.00, Thyroid Stimulating Hormone (TSH) 6.630H, Free Thyroxine Index 3.5, Thyroxine (T4) 10.2, Triiodothyronine (T3) Uptake 34, Ethyl Alcohol Level < 0.003 07/23/19 23:15: Urine Color STRAW, Urine Appearance CLEAR, Urine pH 8.0, Urine Specific [place] 1.006, Urine Protein NEGATIVE, Urine Glucose (Auto)(UA) 1+H, Urine Ketones (Auto) NEGATIVE, Urine Blood 1+H, Urine Nitrite NEGATIVE, Urine Bilirubin NEGATIVE, Urine Urobilinogen 0.2, Urine Leukocyte Esterase (Auto) TRACEH, Urine WBC (Auto) 2, Urine RBC (Auto) 1, Urine Hyaline Casts (Auto) 0, Urine Bacteria (Auto) NEGATIVE, Urine Squamous Epithelial Cells 0, Urine Sperm (Auto) 07/24/19 00:42: Lactic Acid Level 1.5 CBC/BMP Laboratory Tests 07/23/19 22:06 Microbiology Microbiology 07/24/19 Blood Culture, Received Pending Home Medications Scheduled Amlodipine Besylate (Amlodipine Besylate) 5 Mg Tab, 5 MG PO DAILY Allergies Coded Allergies: phenytoin (Verified Allergy, Severe, ANAPHYLAXIS, 07/23/19) Penicillins (Verified Allergy, Intermediate, RASH HIVES, 07/23/19) codeine (Verified Allergy, Intermediate, HIVES, 07/23/19) erythromycin base (Verified Allergy, Intermediate, HIVES, 07/23/19) nickel (Verified Allergy, Intermediate, SKIN PEELS AND BREAKS OUT, 07/23/19) tetracycline (Verified Allergy, Intermediate, RASH HIVES, 07/23/19) A-FIB/CHADSVASC A-FIB History Current/History of A-Fib/PAF?: Yes Current PO Anticoag Therapy: No (weight based lovenox initiated) GME ATTESTATION GME ATTESTATION My faculty preceptor for this patient encounter was physically present during the encounter and was fully available. All aspects of the patient interview, examination, medical decision making process, and medical care plan development were reviewed and approved by the faculty preceptor. The faculty preceptor is aware and concurs with the plan as stated in the body of this note and will attest to such by his/her cosignature. ATTENDING NOTE Pls see my addendum dated 07/24/19 for additional details. CHER HOUGH D.O. July 24, 2019 01:50 JOHN BERMUDEZ MD July 24, 2019 06:16
--- NOTE | 2019-07-24 02:00 | IPNPDOC ---
Text Note Date of Service The patient was seen on 07/24/19. NOTE TIME OF SERVICE: 1210AM Ms. Flores is a 73-year-old with a history of old thalamic CVA, HTN, polymyalgia rheumatica, dyslipidemia, cataracts, hip surgery, and appendectomy who was brought here by her friends and family because they noticed that she was confused. The patient does not remember the events over the last few days and doesn't remember why she is here option got to the hospital. The complaint is of nausea and headache. Per Dr. Valentin her NIH stroke score was 1 and she received aspirin. Vital Signs Date Time Temp Pulse Resp B/P (MAP) Pulse Ox O2 Delivery O2 Flow Rate FiO2 07/23/19 21:40 97.1 114 20 145/74 (97) 98 Room Air Her physical exam is unremarkable except she doesn't know where she is the, date, who the president is and recent events such as the pandemic Laboratory Tests CT of the head was unremarkable EKG showed atrial fibrillation with a heart rate of 101 Plan: 1. Encephalopathy Her primary symptom is loss of recent memory. Cause TBD Differential includes thyroid disorder, B12, Thiamine deficiency, brain tumor, psychiatric disorder or viral or autoimmune encephalitidies Plan: admit to medical floor / neurochecks / the daytime team can call the patient's family in the morning to obtain additional history in the meanwhile, we will f/u B12, B1, ammonia, drug screen/ if this work up is negative the day time team may consider ordering MRI/MRA, Psych consult to r/o psychiatric disorder and or Neuro consult to discuss if LP is needed to r/o viral or autoimmune encephalitidies 2. New onset Afib Her Trop & BNP are slightly elevated and her K is on the low side CHADS VASC Score to determine risk of stroke = 6 Wells Score for PE = 1.5 poitns = low risk therefore won't order d-dimer or CTA to r/o PE Plan: telemetry / metoprolol 2.5mg IV PRN for rapid afib w HR >110 / will start weight based lovenox pending Echo to r/o mitral rheumatic valvulopathy / trend trops 3. Hypokalemia. Mag wnl Plan: Repelte K 4. SIRS Cause TBD Plan: monitor vitals / follow up blood cultures and lactic acid 5. Subclinical Hypothyroidism TSH <8 is the cut off for normal in geriatric patients. Plan: f/u w PCP for repeat TFTs in 6-8 weeks 6 .hx of CVA / dyslipidemia - atorvastatin 7. chronic HTN - amlodipine rest per H&P JOHN BERMUDEZ MD July 24, 2019 02:00
[2019-07-24] MEDS ORDERED: ACETAMINOPHEN 650MG ER TAB (TYLENOL ARTHRITIS) PO PRN (02:30)
[2019-07-24] MEDS: ATORVASTATIN 10 MG TAB PO SCH ×2 (03:16→21:17)
[2019-07-24] MEDS: ENOXAPARIN 60MG/0.6ML SYRINGE (J1650 PER 10MG) SC SCH ×2 (03:17→14:41)
[2019-07-24] MEDS ORDERED: POTASSIUM CHLORIDE 10 MEQ SR TABLET PO ONE ×2 (04:30→10:45)
[2019-07-24 04:47] LABS: HEMATOCRIT 46.2 % (36.0-47.0); HEMOGLOBIN 15.2 g/dl (12.0-15.5); MEAN CORPUSCULAR HEMOGLOBIN 27.7 pg (27.0-33.0); MEAN CORPUSCULAR HGB CONC 32.9 g/dl (32.0-36.5); MEAN CORPUSCULAR VOLUME 84.3 fl (80.0-96.0); PLATELET COUNT, AUTOMATED 295 10^3/uL (150-450); RED BLOOD COUNT 5.48 10^6/uL (4.00-5.40); WHITE BLOOD COUNT 9.9 10^3/uL (4.0-10.0)
[2019-07-24 05:11] LABS: CALCIUM LEVEL 9.5 MG/DL (8.8-10.2); CREATININE FOR GFR 1.03 MG/DL (0.55-1.30); GLOMERULAR FILTRATION RATE 55.9 (>39); POTASSIUM SERUM 3.5 MEQ/L (3.5-5.1); TROPONIN I 0.16 NG/ML (< 0.10)
[2019-07-24] MEDS ORDERED: amLODIPine 5 MG TAB As Ordered ONE (06:28)
[2019-07-24] MEDS: METOPROLOL TART 12.5 MG PER 1/2 TAB PO SCH ×2 (07:19→11:44)
[2019-07-24] MEDS ORDERED: LOSARTAN 25 MG TAB PO SCH (09:00)
[2019-07-24] MEDS ORDERED: amLODIPine 5 MG TAB PO SCH (09:00)
[2019-07-24] MEDS ORDERED: lisinopriL 5 MG TAB PO SCH (09:00)
--- NOTE | 2019-07-24 09:49 | REP ---
MR ANGIOGRAPHY THE BRAIN WITHOUT CONTRAST: HISTORY: Altered mental status. Comparison is made with yesterday's CT study of the brain. TECHNIQUE: 3D [id number] MR angiography of the brain is acquired in the usual fashion and maximal intensity projection images were generated in rotational format about the vertical and horizontal axes. In addition, source axial T1-weighted images are viewed in cine mode. MR ANGIOGRAPHIC FINDINGS: The distal vertebral arteries are patent and co-dominant. Basilar artery is a little tortuous but widely patent. The posterior cerebral and superior cerebellar vessels are normal and symmetric. There is persistent origin of the right posterior cerebral artery as a normal variant. There is subtle atherosclerotic irregularity of the distal cervical segments of the internal carotid arteries bilaterally. No significant stenosis. The distal internal carotid arteries are otherwise unremarkable. Anterior and middle cerebral arteries appear intact. There is no visible arriaga aneurysm or arteriovenous malformation. IMPRESSION: Minimal atherosclerotic irregularity of the distal cervical internal carotid arteries. Persistent origin of the right posterior cerebral artery. Otherwise unremarkable MR angiography the brain. Electronically Signed by Tim Rayo MD 07/24/2019 11:53 A
--- NOTE | 2019-07-24 09:51 | REP ---
MRI BRAIN WITHOUT CONTRAST: HISTORY: Altered mental status. Comparison is made with the previous day's CT study of the brain. TECHNIQUE: Axial and sagittal imaging planes are utilized for T1- and T2-weighted scans. Sequences include spin-echo, fast spin echo, FLAIR, and diffusion weighted sequences. MRI FINDINGS: No bony calvarial lesion is seen. Craniocervical junction and upper cervical cord are normal in appearance. There is a mucous retention cyst along the medial wall left maxillary sinus 10 mm in greatest diameter. No other MR evidence of paranasal sinus disease. No intraorbital abnormality is seen. Diffusion weighted scans show no evidence of acute ischemia. There are two small old lacunar infarcts in the basal ganglia on the right, one in the thalamus and the other in the dentate nucleus. There is no evidence of intracranial hemorrhage. There are mild patchy areas of periventricular white matter hyperintensity consistent with small vessel changes in the frontal lobes bilaterally right more so than left. No mass or extra-axial fluid collection is seen. IMPRESSION: Small vessel atherosclerotic changes in the periventricular white matter. Old lacunar infarcts in the right basal ganglia. No acute intracranial abnormality seen. Electronically Signed by Tim Rayo MD 07/24/2019 11:54 A
--- NOTE | 2019-07-24 10:43 | IPNPDOC ---
Text Note Date of Service The patient was seen on 07/24/19. NOTE Subjective: Patient is a 73-year-old female with a PMHx of HTN, DLP, Previous CVA (Old R thalamic infarction), Polymyalgia rheumatica who was brought to the ER by her friend on 5/6 PM after her friend had noted she had significant confusion. In the ER, patient was found to have atrial fibrillation with RVR (rates about 105-140 bpm), along with WBC 13.8, troponin 0.17, TSH 6.6, alkaline phosphatase 126, serum glucose 142, and potassium 3.4. UA was relatively unremarkable, CT head without contrast showed no acute intracranial abnormality, and ethyl alcohol was not detected. Her NIH Stroke Scale score was 1. She was given one, 325mg ASA dose after Head CT. Patient was admitted to hospitalist service for further evaluation and treatment of her confusion and her atrial fibrillation. Patient was seen and examined at the bedside. Currently, patient is oriented to person, place and time. She is unaware of the events that have occurred prior to this morning. Patient denies any chest pain, shortness breath, palpitation. She denies any nausea, vomiting, abdominal pain, diarrhea, or urinary discomfort. She is unaware of any fevers or chills within the last couple of days. Objective: Vitals (See below) General: Lying in bed, appears comfortable, AAOx3 HEENT: NC, AT, pupils are equal, round and reactive to light bilaterally CVS: +S1S2 Lungs: Fair air entry b/l, no appreciable wheezing, rhonchi or crackles Abdomen: Soft, ND, NT Extremities: - Edema, - Calf tenderness Neuro: 5 / 5 strength in upper and lower extremities bilaterally Assessment and plan: s/p Acute encephalopathy - possibly 2/2 metabolic, possibly 2/2 TIA - Currently patient has reported resolution of her symptoms; however, she is unable to recall the events that preceded this morning - Physical does not reveal any focal neurologic deficits - Remains hemodynamically stable and afebrile - UA without any signs of infection / Electrolytes wnl / B12 wnl / Ammonia not elevated - CT head 07/22: Mild involutional changes, no acute intracranial abnormality. - MRA brain 07/23: Minimal atherosclerotic irregularity of the distal cervical internal carotid arteries. Persistent origin of the right posterior cerebral artery. Otherwise unremarkable MR angiography the brain. - MRI brain 07/23: Small vessel atherosclerotic changes in the periventricular white matter. Old lacunar infarcts in the right basal ganglia. No acute intracranial abnormality seen. - Awaiting Carotid US / ECHO - Will check Cardiac risk panel - c/w Neuro checks; will adjust frequency - s/p ASA 325; will start ASA 81 daily - c/w Atorvastatin - Will start PT and OT New onset Paroxysmal A. fib with RVR - Currently patient is in sinus rythm with appropriate rate - Does not report any CP, SOB, palpitations - EKG on admission with evidence of atrial fibrillation - ECHO pending - s/p Metoprolol IV - Will start Metoprolol tartrate 25 q6h - Currently on full anticoagulation with Lovenox Elevated troponin - likely 2/2 demand ischemia 2/2 paroxysmal a. fib - Does not report any CP, SOB, palpitations - EKG with some ischemic changes noted / LV hypertrophy (long standing HTN) - Troponin initially midly elevated at 0.17, 0.16; Will trend Troponin - c/w rate control for above s/p Hypokalemia. - Has been supplemented Subclinical Hypothyroidism - Will require outpatient follow up with PCP for repeat lab work in 4-6 weeks Hx of CVA - c/w Atorvastatin Dyslipidemia - c/w Atorvastatin Chronic HTN - Moderately elevated - Will DC Amlodipine - Will start Metoprolol for rate / BP control; will titrate as need for appropriate BP control Polymyalgia Rheumatica DVT prophylaxis - currently on full anticoagulation with Lovenox VS,Fishbone, I+O VS, Fishbone, I+O Laboratory Tests 07/23/19 22:06 07/24/19 04:34 Vital Signs Date Time Temp Pulse Resp B/P (MAP) Pulse Ox O2 Delivery O2 Flow Rate FiO2 07/24/19 08:00 99.0 96 17 160/102 (121) 96 Room Air I&O- Last 24 Hours up to 6 AM 07/24/19 06:00 Output Total 450 ml Balance -450 ml JAYE ABBASI MD July 24, 2019 10:42
--- NOTE | 2019-07-24 11:26 | REP ---
DUPLEX CAROTID SONOGRAPHY: HISTORY: Altered mental status. FINDINGS: Antegrade flow was observed in both vertebral arteries. RIGHT CAROTID: Right common carotid artery is unremarkable. There is mild mixed plaquing in the bulb and proximal ICA on the right side on two-dimensional scanning. Color flow and spectral Doppler interrogation are unremarkable on the right. Velocity Chart Right Carotid: PSV EDV Right CCA 85 cm/s Right ICA 73 cm/s 27 cm/s Right ECA 82 cm/s Right ICA/CCA ratio normal 0.9. LEFT CAROTID: The left common carotid artery is unremarkable on two-dimensional scanning. There is a mild mixed plaquing in the bulb and proximal ICA on two-dimensional scanning on the left. Color flow and spectral Doppler interrogation are unremarkable on the left. Velocity Chart Left Carotid: PSV EDV Left CCA 85 cm/s Left ICA 49 cm/s 22 cm/s Left ECA 98 cm/s Left ICA/CCA ratio normal 0.6. IMPRESSION: Less than 50% category narrowing in the proximal ICA bilaterally. Mild plaquing. Electronically Signed by Tim Rayo MD 07/24/2019 11:55 A
[2019-07-24] MEDS: ASPIRIN 81 MG ENTERIC TAB PO SCH (11:44)
[2019-07-24 13:03] LABS: CHOLESTEROL RISK RATIO 2.423 (<5); CK-MB VALUE MASS 1.7 NG/ML (<3.6); MB/CK RELATIVE INDEX 2.02 (< OR =4); TROPONIN I 0.16 NG/ML (< 0.10)
[2019-07-24] MEDS ORDERED: LOSARTAN 50MG TABLET PO SCH (17:00)
[2019-07-24] MEDS ORDERED: hydrALAZINE 20MG/ML 1ML VIAL (J0360 PER 20MG) IV ONE (17:00)
[2019-07-24] MEDS: METOPROLOL TART 25 MG TABLET PO SCH ×2 (17:04→23:50)
[2019-07-24] MEDS ORDERED: IBUPROFEN 600 MG TAB PO ONE (17:15)
--- NOTE | 2019-07-24 21:02 | ECHO ---
DATE OF PROCEDURE: 07/24/2019 DATE OF : 1945 AGE: 73 GENDER: Female HEIGHT: 66 inches WEIGHT: 134 pounds BODY SURFACE AREA: 1.69 meters squared INPATIENT: Progressive care unit (PCU), room 3216 REFERRING PHYSICIAN: Dr. Sultana Ervin INDICATION: Cardiac dysrhythmias. MEASUREMENTS: 2D Measurements: RV: 2.8 cm LV: 5.0 cm Septum: 1.2 cm Posterior wall: 1.2 cm Aortic root: 2.8 cm LA: 4.0 cm LVEF: 60% DOPPLER MEASUREMENTS: AV: 1.0 meters per second LVOT: 0.7 meters per second LVOT diameter: 2.0 cm MV: 69, A: 88, EA ratio: 0.8. Early mitral deceleration time: 198 milliseconds E-prime medial: 4.1, A prime medial: 7.5, E prime lateral: 4.5. E/E prime average: 16/pulmonary capillary wedge pressure: 21.8 mmHg. PV: 0.7 meters per second Pulmonary artery acceleration time: 134 milliseconds RVSP: 33 mmHg IVC: 1.5 cm COMMENTS: Normal sinus rhythm without intraventricular conduction disturbance. M-mode and two-dimensional echocardiography was performed with pulsed, continuous wave, color flow and tissue Doppler studies. Borderline concentric left ventricular hypertrophy with normal wall motion. Mildly dilated left atrium with grade 1 LV diastolic dysfunction and elevated estimated mean left atrial pressure. Normal right heart chamber sizes and motion with Doppler evidence of borderline pulmonary hypertension. Normal IVC size and collapse against an elevated central venous pressure. Intra-atrial septal aneurysm but no evidence of patent field ovale or left to right shunting. Normal aortic dimensions. Mild aortic valvular sclerosis without stenosis and only trace insufficiency. Moderate degenerative change of the mitral valvular apparatus with adequate leaflet excursion and no posterior systolic buckling but at least moderate slightly eccentric mitral insufficiency. Normal appearing tricuspid valve with at least moderate insufficiency. No apparent intracardiac mass or pericardial effusion. MTDD
[2019-07-24] MEDS: LOSARTAN 50MG TABLET PO SCH (21:17)
--- NOTE | 2019-07-24 22:04 | ECGEPIP ---
[facility] - ED Test Date: 2019-07-23 Pat Name: VIDHYA ABRAHAM Department: Room: J4535-30 Gender: Female Mrb Engineer: paulino : 1945 Requested By: YAMIL NELSON Order Number: [id number] Reading MD: Neto Obando Measurements Intervals [place] Rate: 101 P: WV: 0 QRS: 7 QRSD: 82 T: 25 QT: 357 QTc: 464 Interpretive Statements ATRIAL FIBRILLATION WITH RAPID VENTRICULAR RESPONSE WITH ABERRANT CONDUCTION OR VENTRICULAR PREMATURE COMPLEXES VOLTAGE CRITERIA FOR LVH ST DEVIATION AND MODERATE T-WAVE ABNORMALITY, CONSIDER LATERAL ISCHEMIA RHYTHM/RATE CHANGE COMPARED TO 01/19/17 Electronically Signed on 07-24-2019 22:04:06 EDT by Neto Obando
[2019-07-24] MEDS: hydrALAZINE 20MG/ML 1ML VIAL (J0360 PER 20MG) IV SCH (23:50)
[2019-07-25] VITALS: BP 142/92
[2019-07-25] MEDS: ENOXAPARIN 60MG/0.6ML SYRINGE (J1650 PER 10MG) SC SCH (01:16)
[2019-07-25] MEDS: hydrALAZINE 20MG/ML 1ML VIAL (J0360 PER 20MG) IV SCH (03:56)
[2019-07-25 04:00] VITALS: BP 124/69
[2019-07-25] MEDS: METOPROLOL TART 25 MG TABLET PO SCH ×2 (05:31→12:25)
[2019-07-25 08:00] VITALS: BP 135/80
[2019-07-25] MEDS ORDERED: METO1TAB33 PO (08:18)
[2019-07-25] MEDS ORDERED: ELIQ5TAB PO (08:18)
[2019-07-25] MEDS ORDERED: COZA50TA PO (08:18)
[2019-07-25] MEDS ORDERED: ATOR1TAB19 PO (08:18)
[2019-07-25] MEDS ORDERED: ASPI81TAEC PO (08:18)
[2019-07-25] MEDS: ASPIRIN 81 MG ENTERIC TAB PO SCH (08:28)
[2019-07-25] MEDS: LOSARTAN 50MG TABLET PO SCH (08:29)
--- NOTE | 2019-07-25 10:49 | DS.PDOC ---
Discharge Summary General Date of Admission July 24, 2019 at 00:03 Date of Discharge 07/25/2019 Discharge Summary PROCEDURES PERFORMED DURING STAY: [None]. ADMITTING DIAGNOSES / DISCHARGE DIAGNOSES: s/p Acute encephalopathy - possibly 2/2 metabolic, possibly 2/2 TIA Paroxysmal A. fib with RVR, New onset Elevated troponin - likely 2/2 demand ischemia 2/2 paroxysmal a. fib s/p Hypokalemia Subclinical Hypothyroidism Hx of CVA Dyslipidemia Chronic HTN Polymyalgia Rheumatica DVT prophylaxis COMPLICATIONS/CHIEF COMPLAINT: Confusion HISTORY OF PRESENT ILLNESS: Patient is a 73-year-old female with a PMHx of HTN, DLP, Previous CVA (Old R thalamic infarction), Polymyalgia rheumatica who was brought to the ER by her friend on 5/6 PM after her friend had noted she had significant confusion. In the ER, patient was found to have atrial fibrillation with RVR (rates about 105-140 bpm), along with WBC 13.8, troponin 0.17, TSH 6.6, alkaline phosphatase 126, serum glucose 142, and potassium 3.4. UA was relatively unremarkable, CT head without contrast showed no acute intracranial abnormality, and ethyl alcohol was not detected. Her NIH Stroke Scale score was 1. She was given one, 325mg ASA dose after Head CT. Patient was admitted to hospitalist service for further evaluation and treatment of her confusion and her atrial fibrillation. HOSPITAL COURSE: s/p Acute encephalopathy - possibly 2/2 metabolic, possibly 2/2 TIA - Fully oriented to person / place / time; Physical without focal neurologic deficits - Remains hemodynamically stable and afebrile - UA without any signs of infection / Electrolytes wnl / B12 wnl / Ammonia not elevated - CT head 07/22: Mild involutional changes, no acute intracranial abnormality. - MRA brain 07/23: Minimal atherosclerotic irregularity of the distal cervical internal carotid arteries. Persistent origin of the right posterior cerebral artery. Otherwise unremarkable MR angiography the brain. - MRI brain 07/23: Small vessel atherosclerotic changes in the periventricular white matter. Old lacunar infarcts in the right basal ganglia. No acute intracranial abnormality seen. - Carotid US 07/23: Less than 50% category narrowing in the proximal ICA bi laterally. Mild plaquing. - ECHO 07/23: Grade 1 diastolic dysfunction, borderline pulmonary hypertension, normal IVC, elevated CVP. Intra-atrial septal aneurysm but no evidence of PFO - sc/w ASA 81; s/p ASA 325 - c/w Atorvastatin - Has cleared PT and OT - Will have outpatient follow up with PCP and Neurology Paroxysmal A. fib with RVR, New onset - Remains rate controlled - Asymptotic; denied any CP, SOB, palpitations - EKG on admission with evidence of atrial fibrillation - ECHO 07/23: Grade 1 diastolic dysfunction, borderline pulmonary hypertension, normal IVC, elevated CVP. Intra-atrial septal aneurysm but no evidence of PFO - s/p Metoprolol IV - c/w Metoprolol; will adjust to long acting form - Will start Eliquis, will DC Lovenox - Will have outpatient follow up with Cardiology Elevated troponin - likely 2/2 demand ischemia 2/2 paroxysmal a. fib - Does not report any CP, SOB, palpitations - EKG with some ischemic changes noted / LV hypertrophy (long standing HTN) - Troponins have remained stable - c/w rate control for above s/p Hypokalemia. - Has been supplemented Subclinical Hypothyroidism - Will require outpatient follow up with PCP for repeat lab work in 4-6 weeks Hx of CVA - Patient was not on Aspirin as an outpatient - c/w Atorvastatin and ASA 81 Dyslipidemia - c/w Atorvastatin Chronic HTN - Well controlled - s/p Amlodipine - c/w Losartan - Will adjust Metoprolol to long acting Metoprolol Succinate Polymyalgia Rheumatica DVT prophylaxis - currently on full anticoagulation with Lovenox; will transition to Eliquis DISCHARGE MEDICATIONS: Please see below. ALLERGIES: Please see below. PHYSICAL EXAMINATION ON DISCHARGE: Vitals (See below) General: Lying in bed, remains comfortable, AAOx3 HEENT: NC, AT CVS: +S1S2 Lungs: Fair air entry b/l, auscultation is without rhonchi, wheezing or crackles Abdomen: Soft, ND, NT, Extremities: No evidence of lower extremity edema, - Calf tenderness LABORATORY DATA: Please see below. ACTIVITY: [As tolerated]. DISCHARGE PLAN: Follow-up with primary care provider, neurology and cardiology within 7 days Remain compliant with treatment plan and medications Return to the ER if you experience any problems DISPOSITION: Home DISCHARGE CONDITION: [Stable]. TIME SPENT ON DISCHARGE: 35 minutes Vital Signs/I&Os Vital Signs Date Time Temp Pulse Resp B/P (MAP) Pulse Ox O2 Delivery O2 Flow Rate FiO2 07/25/19 08:29 135/80 07/25/19 08:00 97.5 80 20 98 Room Air I&O- Last 24 Hours up to 6 AM 07/25/19 06:00 Intake Total 1020 ml Output Total 1600 ml Balance -580 ml Laboratory Data Labs 24H Laboratory Tests 2 07/24/19 12:20: Total Creatine Kinase 84, Creatine Kinase MB 1.7, Creatine Kinase MB Relative Index 2.02, Troponin I 0.16H, Triglycerides Level 74, Total Cholesterol 252H, LDL Cholesterol 133H, Non-HDL Cholesterol (LDL + VLDL) 148, Total HDL Cholesterol 104, Cholesterol/HDL Ratio 2.423 Microbiology Microbiology 07/24/19 Blood Culture - Preliminary, Resulted No growth after 24 hours . All specim... Discharge Medications Scheduled Apixaban (Eliquis) 5 Mg Tablet, 1 TAB PO BID Aspirin (Aspirin EC) 81 Mg Tablet.dr, 81 MG PO DAILY Atorvastatin Calcium (Atorvastatin Calcium) 10 Mg Tablet, 10 MG PO QHS Losartan Potassium (Cozaar) 50 Mg Tablet, 50 MG PO BID Metoprolol Succinate (Metoprolol Succinate) 100 Mg Tab.er.24h, 1 TAB PO DAILY Allergies Coded Allergies: phenytoin (Verified Allergy, Severe, ANAPHYLAXIS, 07/23/19) Penicillins (Verified Allergy, Intermediate, RASH HIVES, 07/23/19) codeine (Verified Allergy, Intermediate, HIVES, 07/23/19) erythromycin base (Verified Allergy, Intermediate, HIVES, 07/23/19) nickel (Verified Allergy, Intermediate, SKIN PEELS AND BREAKS OUT, 07/23/19) tetracycline (Verified Allergy, Intermediate, RASH HIVES, 07/23/19) acetaminophen (Verified Allergy, Unknown, 07/24/19) JAYE ABBASI MD July 25, 2019 10:49
[2019-07-25 12:00] VITALS: BP 139/80
[2019-07-25] MEDS ORDERED: APIXABAN 5 MG TAB (ELIQUIS) PO SCH (12:00)
[2019-07-25 12:25] VITALS: BP 139/80
== END 2019-07-25 13:26 | disposition home or self-care (01) | DRG 71 ==
LOC: M ED 21:37 → M PCU 07-24 00:03 → ENRESERV 07-24 00:09
PROVIDERS: ADMIT Internal Medicine; ATTEND Internal Medicine
DX: G93.41 Metabolic encephalopathy (principal); I24.8 Other forms of acute ischemic heart disease; G45.9 Transient cerebral ischemic attack, unspecified; I48.0 Paroxysmal atrial fibrillation; I10 Essential (primary) hypertension; E87.6 Hypokalemia; E02 Subclinical iodine-deficiency hypothyroidism; E78.5 Hyperlipidemia, unspecified; Z86.73 Personal history of transient ischemic attack (TIA), and cerebral infarction without residual deficits; M35.3 Polymyalgia rheumatica; Z79.82 Long term (current) use of aspirin; Z79.899 Other long term (current) drug therapy; Z88.0 Allergy status to penicillin; Z88.5 Allergy status to narcotic agent; Z88.6 Allergy status to analgesic agent; Z88.8 Allergy status to other drugs, medicaments and biological substances; K57.30 Diverticulosis of large intestine without perforation or abscess without bleeding

== ENCOUNTER → 2019-08-21 | Outpatient (REF) | payer MEDICARE ==
[~2019-08-21] MED LIST changes: -APIXABAN 2.5 MG TAB (ELIQUIS) PO SCH; +ASPI81TAEC PO; +ATOR1TAB19 PO; +COZA50TA PO; +ELIQ5TAB PO; +METO1TAB33 PO
[2019-08-21 16:30] LABS: CHOLESTEROL RISK RATIO 2.67 (<5)
[2019-08-21 16:59] LABS: TOTAL 25(OH) VITAMIN D 40.4 NG/ML (30.0-100.0)
== END ==
LOC: M SFHCCLAY 10:51
PROVIDERS: ATTEND Nurse Practitioner Family
DX: E78.5 Hyperlipidemia, unspecified (principal); E55.9 Vitamin D deficiency, unspecified

== ENCOUNTER → 2020-08-10 | Outpatient (REF) | payer MEDICARE ==
[~2020-08-10] MED LIST changes: +AMLO1TAB24 PO; -AMLO5TAB6 PO; +ASPI-569 PO; -ASPI81TAEC PO; +CALC-362 PO; -CHEW500C2 PO
[2020-08-10 11:50] LABS: HEMATOCRIT 46.6 % (36.0-47.0); MEAN CORPUSCULAR HEMOGLOBIN 28.3 pg (27.0-33.0); MEAN CORPUSCULAR HGB CONC 32.2 g/dl (32.0-36.5); MEAN CORPUSCULAR VOLUME 87.9 fl (80.0-96.0); PLATELET COUNT, AUTOMATED 255 10^3/uL (150-450); WHITE BLOOD COUNT 7.3 10^3/uL (4.0-10.0)
[2020-08-10 12:42] LABS: ALBUMIN 3.9 GM/DL (3.2-5.2); ALT/SGPT 14 U/L (12-78); BILIRUBIN,TOTAL 0.6 MG/DL (0.2-1.0); BLOOD UREA NITROGEN 14 MG/DL (7-18); CALCIUM LEVEL 9.7 MG/DL (8.8-10.2); CARBON DIOXIDE LEVEL 30 MEQ/L (21-32); CHLORIDE LEVEL 103 MEQ/L (98-107); CHOLESTEROL LEVEL 219 MG/DL (<200); CHOLESTEROL RISK RATIO 2.433 (<5); GLOMERULAR FILTRATION RATE > 60.0 (>39); GLUCOSE, FASTING 102 MG/DL (70-100); HDL CHOLESTEROL 90 MG/DL (>40); LDL CHOLESTEROL 112 MG/DL (<100); NON-HDL-C 129 MG/DL; POTASSIUM SERUM 3.6 MEQ/L (3.5-5.1); SODIUM LEVEL 141 MEQ/L (136-145); TOTAL 25(OH) VITAMIN D 45.3 NG/ML (30.0-100.0); TOTAL PROTEIN 7.3 GM/DL (6.4-8.2); TRIGLYCERIDES LEVEL 83 MG/DL (<150)
== END ==
LOC: M SFHCCLAY 07:32
PROVIDERS: ATTEND Nurse Practitioner Family
DX: E78.5 Hyperlipidemia, unspecified (principal); I10 Essential (primary) hypertension; E55.9 Vitamin D deficiency, unspecified; Z79.899 Other long term (current) drug therapy